=== PATIENT | female | born 1940 | race Two or more races ===

== ENCOUNTER 2017-08-05 18:38 | Inpatient (IN) | payer MEDICARE, OTHER, SELFPAY ==
[~2017-08-05] VITALS: Ht 167.6 cm; Wt 64.1 kg
[2017-08-05] MEDS ORDERED: SODIUM CHLORIDE FLUSH 10ML SYR IVF ONE (19:00)
[2017-08-05 19:23] LABS: BASOPHILS # (AUTO) 0.05 x10^3/uL (0-0.1); BASOPHILS % (AUTO) 1 % (0-1); EOSINOPHILS % (AUTO) 4 % (1-7); LYMPHOCYTES # (AUTO) 1.51 x10^3/uL (1-3.4); LYMPHOCYTES % (AUTO) 29 % (22-44); MD NO; MEAN CORPUSCULAR HEMOGLOBIN 29.7 pg (27.0-34.8); MEAN CORPUSCULAR HGB CONC 33.6 g/dL (32.4-35.8); MEAN CORPUSCULAR VOLUME 88.2 fL (80-100); MEAN PLATELET VOLUME 9.8 fL (7.4-10.4); MONOCYTES # (AUTO) 0.41 x10^3/uL (0.2-0.8); MONOCYTES % (AUTO) 8 % (2-9); NEUTROPHILS # (AUTO) 3.05 x10^3/uL (1.8-6.8); NEUTROPHILS % (AUTO) 58 % (42-75); PLATELET COUNT 171 x10^3/uL (130-400); RED BLOOD COUNT 4.15 x10^6/uL (3.82-5.3); RED CELL DISTRIBUTION WIDTH 13.7 % (9.6-15.2)
[2017-08-05 19:29] LABS: ALBUMIN 3.4 g/dL (3.4-5.0); ANION GAP 4 mmol/L (5-15); CALCIUM 8.6 mg/dL (8.5-10.1); CHLORIDE 110 mmol/L (98-107); CREATININE 0.78 mg/dL (0.55-1.02)
[2017-08-05 19:33] LABS: TROPONIN I < 0.015 ng/mL (0.000-0.045)
[2017-08-05] MEDS ORDERED: ASPIRIN 81 MG TABLET CHEW PO ONE (20:30)
[2017-08-05] MEDS ORDERED: MORPHINE SULFATE 4 MG/ML, 1ML IVPush PRN (20:30)
[2017-08-05] MEDS ORDERED: ONDANSETRON ODT 4 MG PO ONE (20:30)
[2017-08-05] MEDS ORDERED: PLEASE ENTER ALLERGIES MC SCH (20:30)
[2017-08-05] MEDS ORDERED: NITROGLYCERIN SINGLE TAB 0.4 MG SL PRN (20:30)
[2017-08-05] MEDS ORDERED: INSU100V8 SQ (20:31)
[2017-08-05] MEDS ORDERED: SODIUM CHLORIDE FLUSH 10ML SYR IVF PRN (21:00)
[2017-08-05] MEDS ORDERED: ONDANSETRON ODT 4 MG ONE (21:27)
[2017-08-05] MEDS ORDERED: ASPIRIN 81 MG TABLET CHEW ONE (21:27)
[2017-08-05] MEDS ORDERED: MORPHINE SULFATE 4 MG/ML, 1ML ONE (21:28)
[2017-08-05] MEDS ORDERED: DOCUSATE 100 MG CAPSULE PO PRN (21:30)
[2017-08-05] MEDS ORDERED: hydrALAzine 20 MG/ML, 1ML IVPush PRN (21:30)
[2017-08-05] MEDS ORDERED: ENALAPRILAT 1.25 MG/ML, 2ML IVPush PRN (21:30)
[2017-08-05] MEDS ORDERED: morphine SULFATE 10 MG/ML, 1ML IVPush PRN (21:30)
[2017-08-05] MEDS ORDERED: ONDANSETRON ODT 4 MG PO PRN (21:30)
[2017-08-05] MEDS ORDERED: ONDANSETRON 2MG/ML, 2ML IVPush PRN (21:30)
[2017-08-05] MEDS ORDERED: PROMETHAZINE 25 MG/ML, 1ML IM PRN (21:30)
[2017-08-05] MEDS ORDERED: POLYETHYLENE GLYCOL 17 GM PACKET PO PRN (21:30)
[2017-08-05] MEDS ORDERED: BISACODYL 10 MG SUPP PR PRN (21:30)
[2017-08-05] MEDS: SODIUM CHLORIDE 0.9% 1,000 ML IV SCH (21:32)
[2017-08-05] MEDS ORDERED: ACETAMINOPHEN 325 MG TABLET ONE (21:46)
[2017-08-05] MEDS: ACETAMINOPHEN 325 MG TABLET PO PRN (21:56)
[2017-08-05 22:15] LABS: FREE T4 (FREE THYROXINE) 1.12 ng/dL (0.76-1.46); THYROID STIMULATING HORMONE 0.376 mIU/L (0.358-3.740)
[2017-08-05] MEDS: INSULIN LISPRO 100 UNITS/ML, PEN SQ-INSULIN SCH (22:15)
[2017-08-05 22:35] LABS: HEMOGLOBIN A1C 6.6 % (4.2-6.3)
[2017-08-05] MEDS ORDERED: HEPARIN 5,000 UNITS/ML, 1ML ONE (23:40)
[2017-08-05] MEDS: HEPARIN 5,000 UNITS/ML, 1ML SQ SCH (23:46)
[2017-08-06 01:30] LABS: TROPONIN I < 0.015 ng/mL (0.000-0.045)
[2017-08-06] MEDS: SODIUM CHLORIDE 0.9% 1,000 ML IV SCH (06:10)
[2017-08-06] MEDS: HEPARIN 5,000 UNITS/ML, 1ML SQ SCH ×3 (06:55→21:30)
[2017-08-06 07:03] LABS: CULTURE INDICATED? NO; MICROSCOPIC NOT IND
[2017-08-06 07:13] LABS: MD YES; MEAN CORPUSCULAR HEMOGLOBIN 29.5 pg (27.0-34.8); MEAN CORPUSCULAR HGB CONC 33.1 g/dL (32.4-35.8); MEAN PLATELET VOLUME 9.9 fL (7.4-10.4); PLATELET COUNT 154 x10^3/uL (130-400); RED BLOOD COUNT 3.98 x10^6/uL (3.82-5.3); RED CELL DISTRIBUTION WIDTH 13.7 % (9.6-15.2)
[2017-08-06 07:22] LABS: CHOL/HDL RATIO 2.3
[2017-08-06 07:23] LABS: TROPONIN I < 0.015 ng/mL (0.000-0.045)
[2017-08-06] MEDS: INSULIN LISPRO 100 UNITS/ML, PEN SQ-INSULIN SCH ×4 (07:52→21:53)
[2017-08-06 08:02] LABS: <PLATELET ESTIMATE> ADEQUATE; <PLT MORPHOLOGY> NORMAL PLT MORPH; <RBC MORPHOLOGY> NORMAL; BASOS#(MANUAL) 0.04 x10^3/uL (0-0.1); BASOS% (MANUAL) 1 % (0-1); EOS#(MANUAL) 0.11 x10^3/uL (0.0-0.4); EOS% (MANUAL) 3 % (1-7); LYMPHS% (MANUAL) 36 % (22-44); MONOS#(MANUAL) 0.22 x10^3/uL (0.3-2.7); MONOS% (MANUAL) 6 % (2-9); SEG#(MANUAL) 1.94 x10^3/uL (1.8-6.8); SEGS% (MANUAL) 54 % (42-75)
[2017-08-06] MEDS ORDERED: REGADENOSON 0.4 MG/5 ML SYRINGE ONE (08:14)
[2017-08-06] MEDS ORDERED: LISINOPRIL 10 MG TABLET PO SCH (09:00)
[2017-08-06 11:07] VITALS: BP 142/70
[2017-08-06] MEDS ORDERED: HYDR12.53 PO (11:35)
[2017-08-06] MEDS ORDERED: DULO20CA45 PO (11:35)
[2017-08-06] MEDS ORDERED: TIMO1DRO2 EACHEYE (11:35)
[2017-08-06] MEDS ORDERED: DONE10TA7 PO (11:35)
[2017-08-06] MEDS ORDERED: ASPI-621 PO (11:35)
[2017-08-06] MEDS ORDERED: LISI40TA PO (11:35)
[2017-08-06] MEDS ORDERED: OMEP-110 PO (11:35)
[2017-08-06] MEDS ORDERED: SIMV40TA3 PO (11:35)
[2017-08-06] MEDS ORDERED: TRAM50TA2 PO (11:35)
[2017-08-06 12:30] VITALS: BP 135/54
[2017-08-06] MEDS: SUCRALFATE 1 GM/10 ML UDC PO SCH ×2 (14:18→21:47)
[2017-08-06] MEDS ORDERED: PANTOPRAZOLE 40 MG IV IVPush SCH (14:30)
[2017-08-06] MEDS ORDERED: ALUMINUM/MAG/SIMETHICONE 30 ML UDC PO ONE (14:30)
[2017-08-06] MEDS ORDERED: SODIUM CHLORIDE 0.9% 1,000 ML IV ONE (14:32)
[2017-08-06 14:50] VITALS: BP 116/51
[2017-08-06] MEDS ORDERED: FENTANYL PF 100 MCG/2ML ONE (14:57)
[2017-08-06] MEDS ORDERED: MIDAZOLAM 1 MG/ML, 5ML ONE (14:58)
[2017-08-06] MEDS ORDERED: BIVALIRUDIN 250 MG ONE (14:58)
[2017-08-06] MEDS ORDERED: HEPARIN 1,000 UNITS/ML, 10ML ONE (14:58)
[2017-08-06] MEDS ORDERED: TICAGRELOR 90 MG TABLET ONE (14:58)
[2017-08-06] MEDS ORDERED: LIDOCAINE 2%, 2ML ONE (14:58)
[2017-08-06] MEDS ORDERED: VERAPAMIL 2.5 MG/ML, 2ML ONE (15:33)
[2017-08-06] MEDS: ACETAMINOPHEN 325 MG TABLET PO PRN (16:48)
[2017-08-06 19:12] VITALS: BP 117/47
[2017-08-06] MEDS: HYDROCHLOROTHIAZIDE 12.5 MG CAPSULE PO SCH (21:47)
[2017-08-06] MEDS: LISINOPRIL 20 MG TABLET PO SCH (21:47)
[2017-08-06] MEDS: DULOXETINE 20 MG CAPSULE.DR PO SCH (21:47)
[2017-08-06] MEDS: DONEPEZIL 10 MG TABLET PO SCH (21:47)
[2017-08-06] MEDS: SIMVASTATIN 40 MG TABLET PO SCH (21:48)
[2017-08-06] MEDS: PANTOPROZOLE 40MG TABLET PO SCH (21:51)
[2017-08-07 01:24] VITALS: BP 126/56
[2017-08-07] MEDS: HEPARIN 5,000 UNITS/ML, 1ML SQ SCH ×3 (05:09→22:46)
[2017-08-07] MEDS: SUCRALFATE 1 GM/10 ML UDC PO SCH ×4 (07:00→22:45)
[2017-08-07] MEDS: INSULIN LISPRO 100 UNITS/ML, PEN SQ-INSULIN SCH ×4 (07:00→22:48)
[2017-08-07] MEDS: PANTOPROZOLE 40MG TABLET PO SCH ×2 (07:30→22:45)
[2017-08-07 07:35] VITALS: BP 155/74
[2017-08-07] MEDS: ASPIRIN 81 MG TABLET EC PO SCH (08:02)
[2017-08-07] MEDS ORDERED: MIDAZOLAM 1 MG/ML, 5ML ONE (08:03)
[2017-08-07] MEDS ORDERED: CEFAZOLIN PMX 1GM/50ML 50 ML ONE (08:03)
[2017-08-07] MEDS ORDERED: LIDOCAINE-MPF 2% ,5ML ONE (08:03)
[2017-08-07] MEDS ORDERED: FENTANYL PF 100 MCG/2ML ONE (08:03)
[2017-08-07] MEDS ORDERED: CEFAZOLIN 1,000 MG ONE (08:04)
[2017-08-07] MEDS ORDERED: ACETAMINOPHEN 325 MG TABLET PO PRN (09:00)
[2017-08-07] MEDS: SODIUM CHLORIDE FLUSH 10ML SYR IVF SCH ×2 (09:00→21:00)
[2017-08-07 14:00] VITALS: BP 151/76
[2017-08-07] MEDS: CEFAZOLIN PMX 1GM/50ML 50 ML IVPB SCH (18:11)
[2017-08-07 20:17] VITALS: BP 153/68
[2017-08-07] MEDS: DULOXETINE 20 MG CAPSULE.DR PO SCH (22:44)
[2017-08-07] MEDS: ACETAMINOPHEN 325 MG TABLET PO PRN (22:44)
[2017-08-07] MEDS: DONEPEZIL 10 MG TABLET PO SCH (22:44)
[2017-08-07] MEDS: HYDROCHLOROTHIAZIDE 12.5 MG CAPSULE PO SCH (22:44)
[2017-08-07] MEDS: SIMVASTATIN 40 MG TABLET PO SCH (22:45)
[2017-08-07] MEDS: LISINOPRIL 20 MG TABLET PO SCH (22:45)
[2017-08-08] MEDS: CEFAZOLIN PMX 1GM/50ML 50 ML IVPB SCH (00:37)
[2017-08-08 03:18] VITALS: BP 143/71
[2017-08-08] MEDS: SUCRALFATE 1 GM/10 ML UDC PO SCH ×2 (06:10→12:14)
[2017-08-08] MEDS: HEPARIN 5,000 UNITS/ML, 1ML SQ SCH ×2 (06:10→14:30)
[2017-08-08] MEDS: INSULIN LISPRO 100 UNITS/ML, PEN SQ-INSULIN SCH ×2 (07:00→12:12)
[2017-08-08 07:55] VITALS: BP 150/70
[2017-08-08] MEDS: PANTOPROZOLE 40MG TABLET PO SCH (09:15)
[2017-08-08] MEDS: ASPIRIN 81 MG TABLET EC PO SCH (09:15)
[2017-08-08] MEDS: ACETAMINOPHEN 325 MG TABLET PO PRN (09:15)
[2017-08-08] MEDS: SODIUM CHLORIDE FLUSH 10ML SYR IVF SCH (09:16)
[2017-08-08] MEDS ORDERED: OMEP-110 PO (09:57)
[2017-08-08] MEDS ORDERED: SUCR1ORA5 PO (09:57)
[2017-08-08] MEDS ORDERED: CARV3.1212 PO (09:57)
[2017-08-08] MEDS ORDERED: ACET325T14 PO (09:57)
[2017-08-08] MEDS ORDERED: OMNIPAQUE 350 MG/ML, 100ML BOTTLE ONE (11:54)
[2017-08-08] MEDS ORDERED: PNEUMOCOCCAL 23 VACCINE IM-VACC ONE (13:30)
[2017-08-08 13:44] VITALS: BP 118/67
[2017-08-08] MEDS ORDERED: CARVEDILOL 3.125 MG TABLET PO SCH (18:00)
== END 2017-08-08 15:10 | disposition home or self-care (01) | DRG 243 ==
LOC: ED 20:16 → EDIP 21:07 → 5SO 08-06 13:05
PROVIDERS: ADMIT Internal Medicine; ATTEND Internal Medicine
PROC: 4A023N7 Measurement of Cardiac Sampling and Pressure, Left Heart, Percutaneous Approach (ICD-10-PCS; 2017-08-06)
PROC: B2151ZZ Fluoroscopy of Left Heart using Low Osmolar Contrast (ICD-10-PCS; 2017-08-06)
PROC: B2111ZZ Fluoroscopy of Multiple Coronary Arteries using Low Osmolar Contrast (ICD-10-PCS; 2017-08-06)
PROC: 0JH606Z Insertion of Pacemaker, Dual Chamber into Chest Subcutaneous Tissue and Fascia, Open Approach (ICD-10-PCS; principal; 2017-08-07)
PROC: 02HK3JZ Insertion of Pacemaker Lead into Right Ventricle, Percutaneous Approach (ICD-10-PCS; 2017-08-07)
PROC: 02H63JZ Insertion of Pacemaker Lead into Right Atrium, Percutaneous Approach (ICD-10-PCS; 2017-08-07)
DX: R00.1 Bradycardia, unspecified (principal); J98.11 Atelectasis; E11.9 Type 2 diabetes mellitus without complications; F03.90 Unspecified dementia, unspecified severity, without behavioral disturbance, psychotic disturbance, mood disturbance, and anxiety; I10 Essential (primary) hypertension; E78.5 Hyperlipidemia, unspecified; K21.9 Gastro-esophageal reflux disease without esophagitis; Z79.4 Long term (current) use of insulin; Z82.49 Family history of ischemic heart disease and other diseases of the circulatory system; Z87.891 Personal history of nicotine dependence; Z96.653 Presence of artificial knee joint, bilateral
CPT/HCPCS: 33208; 36415; 71045; 71275; 78452; 80048; 80061; 81003; 82040; 82962; 83036; 83735; 84439; 84443; 84484; 85025; 90732; 93005; 93306; 93458; 96360; 96361; 99156; C1769; C1779; C1785; C1892; C1894; J0583; J0690; J1644; J2250; J2785; J3010; J3490; Q0162; Q9967; A9502; C9113; C9898; J1815; J7030

== ENCOUNTER → 2017-11-02 | Outpatient (CLI) | payer MEDICAID, MEDICARE ==
[~2017-11-02] MED LIST: ACET325T14 PO; ASPI-621 PO; CARV3.1212 PO; DONE10TA7 PO; DULO20CA45 PO; HYDR12.53 PO; INSU100V8 SQ; LISI40TA PO; OMEP-110 PO; SIMV40TA3 PO; SUCR1ORA5 PO; TIMO1DRO2 EACHEYE; TRAM50TA2 PO
== END | disposition home or self-care (01) ==
LOC: RAD 12:44
PROVIDERS: ATTEND Neurological Surgery
DX: G31.9 Degenerative disease of nervous system, unspecified (principal); I60.9 Nontraumatic subarachnoid hemorrhage, unspecified; M19.022 Primary osteoarthritis, left elbow; M19.041 Primary osteoarthritis, right hand; I80.9 Phlebitis and thrombophlebitis of unspecified site; M79.642 Pain in left hand
CPT/HCPCS: 70450

== ENCOUNTER → 2017-11-12 | Outpatient (CLI) | payer MEDICARE | END | disposition home or self-care (01) | LOC: PETCFH 08:33 | PROVIDERS: ATTEND Nurse Practitioner Family | DX: E07.9 Disorder of thyroid, unspecified (principal); E05.90 Thyrotoxicosis, unspecified without thyrotoxic crisis or storm | CPT/HCPCS: 78013; A9516 ==

== ENCOUNTER → 2018-05-28 | Outpatient (CLI) | payer MEDICARE ==
[~2018-05-28] MED LIST changes: -ASPI-621 PO; +ASPI81TA45 PO; +HYDR12.517 PO; -HYDR12.53 PO
== END | disposition home or self-care (01) ==
LOC: CFH 10:29
PROVIDERS: ATTEND Nurse Practitioner Family
DX: Z13.820 Encounter for screening for osteoporosis (principal); M85.88 Other specified disorders of bone density and structure, other site; M06.9 Rheumatoid arthritis, unspecified
CPT/HCPCS: 77080

== ENCOUNTER 2018-07-16 10:30 | Emergency (ER) | payer MEDICARE ==
[~2018-07-16] VITALS: Ht 162.6 cm; Wt 69.6 kg
[2018-07-16 10:35] VITALS: BP 122/66
== END 2018-07-16 11:33 | disposition home or self-care (01) ==
LOC: ED 11:27
DX: J06.9 Acute upper respiratory infection, unspecified (principal); E11.9 Type 2 diabetes mellitus without complications; I20.0 Unstable angina
CPT/HCPCS: 71046; 99283